=== PATIENT | female | born 2000 | race African-American/Black ===

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

== ENCOUNTER 2019-03-22 03:59 | Emergency (ER) | payer MEDICAID ==
[~2019-03-22] VITALS: Ht 157.5 cm; Wt 100.0 kg
[2019-03-22] MEDS ORDERED: ACETAMINOPHEN 325MG TABLET PO ONE (06:30)
[2019-03-22 08:15] LABS: CLARITY URINE CLEAR (CLEAR); COLOR URINE YELLOW (YELLOW); KETONES URINE TRACE (NEGATIVE); LEUKOCYTE ESTERASE URINE TRACE (NEGATIVE); NITRITE URINE NEGATIVE (NEGATIVE); OCCULT BLOOD URINE NEGATIVE (NEGATIVE); PROTEIN URINE NEGATIVE (NEGATIVE); SPECIFIC GRAVITY URINE 1.013 (1.005-1.030); UROBILINOGEN URINE 0.2 E.U./dL (0.2-1.0)
[2019-03-22 14:00] VITALS: BP 118/75
== END 2019-03-22 14:02 | disposition home or self-care (01) ==
LOC: ER 03:59
DX: O26.891 Other specified pregnancy related conditions, first trimester (principal); O99.511 Diseases of the respiratory system complicating pregnancy, first trimester; Z3A.01 Less than 8 weeks gestation of pregnancy; Z98.890 Other specified postprocedural states
CPT/HCPCS: 76801; 81003; 81025; 99284; Z7610

== ENCOUNTER 2019-04-06 17:52 | Emergency (ER) | payer MEDICAID ==
[~2019-04-06] VITALS: Ht 172.7 cm; Wt 85.0 kg
[2019-04-06 18:02] VITALS: BP 108/68
[2019-04-06] MEDS ORDERED: ACETAMINOPHEN 325MG TABLET PO STA (18:18)
[2019-04-06 18:43] LABS: CLARITY URINE CLEAR (CLEAR); COLOR URINE YELLOW (YELLOW); KETONES URINE NEGATIVE (NEGATIVE); LEUKOCYTE ESTERASE URINE TRACE (NEGATIVE); NITRITE URINE NEGATIVE (NEGATIVE); OCCULT BLOOD URINE NEGATIVE (NEGATIVE); PROTEIN URINE NEGATIVE (NEGATIVE); SPECIFIC GRAVITY URINE 1.013 (1.005-1.030); UROBILINOGEN URINE 0.2 E.U./dL (0.2-1.0)
[2019-04-06 19:15] LABS: BASOPHILS % 0.6 % (0.0-2.0); EOSINOPHILS % 0.3 % (0.0-5.0); HEMATOCRIT. 37.6 % (36.0-48.0); HEMOGLOBIN. 12.7 g/dL (12.0-16.0); LYMPHOCYTES % 23.1 % (20.0-50.0); MEAN CORPUSCULAR HEMOGLOBIN 30.3 pg (28.0-32.0); MEAN CORPUSCULAR VOLUME 89.5 fL (81.0-99.0); MEAN PLATELET VOLUME 8.7 fl (7.4-10.4); MONOCYTES % 6.5 % (2.0-8.0); NEUTROPHILS % 69.5 % (40.0-76.0); PLATELET 328 x1000/uL (130-400); RED CELL DISTRIBUTION WIDTH 13.5 % (11.6-14.6)
[2019-04-06 19:19] LABS: CHLORIDE 108 mEq/L (98-107)
[2019-04-06 19:43] LABS: B-HCG QUANTITATIVE 127163 mIU/mL (<3)
== END 2019-04-06 22:22 | disposition left against medical advice (07) ==
LOC: ER 17:52
DX: O99.89 Other specified diseases and conditions complicating pregnancy, childbirth and the puerperium (principal); R10.814 Left lower quadrant abdominal tenderness; Y07.03 Male partner, perpetrator of maltreatment and neglect; Z3A.01 Less than 8 weeks gestation of pregnancy; Y04.2XXA Assault by strike against or bumped into by another person, initial encounter; Y93.89 Activity, other specified; Y92.89 Other specified places as the place of occurrence of the external cause
CPT/HCPCS: 36415; 76801; 80053; 81003; 81025; 84702; 85025; 86850; 86900; 99283

== ENCOUNTER 2022-07-15 19:03 | Emergency (ER) | payer MEDICAID ==
[~2022-07-15] VITALS: Ht 157.5 cm; Wt 111.0 kg
[2022-07-15 19:10] VITALS: BP 128/81
[2022-07-15] MEDS ORDERED: IBUP-2077 MT (23:11)
[2022-07-15] MEDS ORDERED: ACET-2084 MT (23:11)
[2022-07-15] MEDS: KETOROLAC 30MG/ML VIAL IM ONE (23:20)
[2022-07-15] MEDS: DEXAMETHASONE 10 MG/ML VIAL IM ONE (23:20)
[2022-07-16] MEDS: KETOROLAC 30MG/ML VIAL IM ONE (00:09)
[2022-07-16] MEDS: DEXAMETHASONE 10 MG/ML VIAL IM ONE (00:10)
[2022-07-16] MEDS ORDERED: AMOX125S12 MT (03:19)
== END 2022-07-16 00:30 | disposition home or self-care (01) ==
LOC: ER 19:03
DX: J02.0 Streptococcal pharyngitis (principal); J45.909 Unspecified asthma, uncomplicated
CPT/HCPCS: 87430; 96372; 99284; J1100; J1885